=== PATIENT | female | born 1980 | race Caucasian/White ===

== ENCOUNTER 2019-10-31 11:06 | Emergency (ER) | payer OTHER, SELFPAY ==
[2019-10-31 12:47] LABS: Absolute Lymphocytes (CBC) 2.4 K/uL (0.7-4.9); Basophils % 0.4 % (0-1.3); Hematocrit 42.4 % (36.0-45.0); Lymphocytes % 27.5 % (15.3-44.8); MPV 8.4 fL (7.6-11.3); RBC Red Blood Cell Count 4.58 M/uL (3.86-4.86)
[2019-10-31 12:51] LABS: Protime INR 1.04
[2019-10-31 13:09] LABS: ALT/SGPT 63 U/L (12-78); AST/SGOT 27 U/L (15-37); Albumin 3.9 g/dL (3.4-5.0); Alkaline Phosphatase 80 U/L (45-117); BUN Blood Urea Nitrogen 13 mg/dL (7-18); Bicarbonate 26 mmol/L (21-32); Bilirubin Direct 0.1 mg/dL (0-0.2); Bilirubin Total 0.5 mg/dL (0.2-1.0); Glucose Level 91 mg/dL (74-106); Magnesium 2.1 mg/dL (1.8-2.4); NT PRO-BNP 8 pg/mL (<125); Potassium 3.9 mmol/L (3.5-5.1); Protein, Total 7.9 g/dL (6.4-8.2); Sodium Level 139 mmol/L (136-145); Troponin (Emerg Dept Use Only) < 0.02 ng/mL (0.0-0.045)
--- NOTE | 2019-10-31 13:36 | RAD REPORT ---
EXAM DESCRIPTION: RAD - Chest Single View - 10/31/2019 1:26 pm CLINICAL HISTORY: CHEST PAIN Chest pain. COMPARISON: No comparisons FINDINGS: Portable technique limits examination quality. The lungs are grossly clear. The heart is normal in size. No displaced fractures. IMPRESSION: No acute intrathoracic process suspected.
[2019-10-31] MEDS ORDERED: cloNIDine HCL 0.1 MG TAB ONE (14:50)
--- NOTE | 2019-10-31 14:52 | EKG ---
Test Date: 2019-10-31 Test Time: 12:45:50 Senior Php Developer: GLADIS MEASUREMENT RESULTS: Intervals: Rate: 96 [place]: 152 QRSD: 84 QT: 380 QTc: 480 [place]: P: 28 [place]: 152 QRS: -24 T: 14 INTERPRETIVE STATEMENTS: Normal sinus rhythm Cannot rule out Anterior infarct, age undetermined Abnormal ECG No previous ECG available for comparison Electronically Signed On 10-31-19 14:51:17 ASSEMBLY LEADER by Esdras Dang
--- NOTE | 2019-10-31 15:17 | ER ---
Nurse's Notes [facility] Name: Tiarra Robert Age: 38 yrs Sex: Female : 1980 Arrival Date: 10/31/2019 Time: 11:11 Bed 7 Private MD: Diagnosis: Hypertension secondary to other renal disorders Presentation: 10/31 11:29 Presenting complaint: Patient states: High blood pressure x years. Pt reports she has ss been feeling worse and has not been able to find a doctor that is covered by her insurance. Transition of care: patient was not received from another setting of care. Onset of symptoms is unknown. Risk Assessment: Do you want to hurt yourself or someone else? Patient reports no desire to harm self or others. Initial Sepsis Screen: Does the patient meet any 2 criteria? No. Patient's initial sepsis screen is negative. Does the patient have a suspected source of infection? No. Patient's initial sepsis screen is negative. Care prior to arrival: None. 11:29 Method Of Arrival: Ambulatory ss 11:29 Acuity: SEJAL 2 ss Historical: - Allergies: 11:31 No Known Allergies; ss - Home Meds: 11:31 None [Active]; ss - PMHx: 11:31 Hypertension; ss - PSHx: 11:31 None; ss - Immunization history:: Adult Immunizations unknown. - Social history:: Smoking status: Patient/guardian denies using tobacco, the patient reports quitting approximately .5 years ago. - Ebola Screening: : Patient denies exposure to infectious person Patient denies travel to an Ebola-affected area in the 21 days before illness onset. Screenin:15 Abuse screen: Denies threats or abuse. Denies injuries from another. Nutritional sg screening: No deficits noted. Tuberculosis screening: No symptoms or risk factors identified. Never had TB. Fall Risk None identified. Assessment: 12:15 General: Appears in no apparent distress. well groomed, well developed, well nourished, sg Behavior is calm, cooperative, appropriate for age. Pain: Complains of pain in headache Quality of pain is described as aching. Neuro: Level of Consciousness is awake, alert, obeys commands, Oriented to person, place, time, Speech is normal, Facial symmetry appears normal. Cardiovascular: Capillary refill is brisk in bilateral fingers Patient's skin is warm and dry. Chest pain is denied. Respiratory: Airway is patent Respiratory effort is even, unlabored, Respiratory pattern is regular, symmetrical. GI: No signs and/or symptoms were reported involving the gastrointestinal system. : No signs and/or symptoms were reported regarding the genitourinary system. EENT: No signs and/or symptoms were reported regarding the EENT system. Derm: Skin is pink, warm \T\ dry. Musculoskeletal: Circulation, motion, and sensation intact. Range of motion: intact in all extremities. Vital Signs: 11:31 BP 183 / 123; Pulse 120; Resp 15; Temp 97.6(TE); Pulse Ox 97% on R/A; Weight 79.83 kg; ss Height 5 ft. 2 in. (157.48 cm); Pain 0/10; 12:30 BP 177 / 113; Pulse 90; Resp 17; Pulse Ox 98% on R/A; sg 13:05 BP 136 / 94; Pulse 94; Resp 16; Temp 97.6; Pulse Ox 97% on R/A; sg 13:33 BP 135 / 107 LA (auto/reg); jp3 14:12 BP 162 / 88 LA Sitting (man/reg); Pulse 87; Pulse Ox 100% on R/A; sg 15:11 BP 147 / 99; Pulse 89; Resp 16; Pulse Ox 99% ; sv 11:31 Body Mass Index 32.19 (79.83 kg, 157.48 cm) ED Course: 11:11 Patient arrived in ED. ds1 11:31 Triage completed. ss 11:31 Arm band placed on left wrist. ss 11:50 Ronaldo Lara MD is Attending Physician. tw4 12:39 Patient maintains SpO2 saturation greater than 95% on room air. jp3 12:39 Initial lab(s) drawn, by me, sent to lab. EKG done, by plant technician. reviewed by Ronaldo Lara MD. Inserted saline lock: 20 gauge in right antecubital area, using aseptic technique. Blood collected. 12:45 Safety checks: Family/friend present: yes. Placed in gown. Bed in low position. Call jp3 light in reach. Side rails up X 1. Warm blanket given. Pillow given. Verbal reassurance given. front desk monitor on. Pulse ox on. NIBP on. 13:04 Fab Gómez, RN is Primary Nurse. sg 13:27 XRAY Chest (1 view) In Process Unspecified. EDMS 15:17 Sheldon Frost MD is Referral Physician. tw4 15:18 Pascual Hill MD is Referral Physician. tw4 15:18 Joel May MD is Referral Physician. tw4 15:18 Paulie Piña MD is Referral Physician. tw4 15:26 No provider procedures requiring assistance completed. IV discontinued, intact, sv bleeding controlled, No redness/swelling at site. Pressure dressing applied. Administered Medications: 14:50 Drug: cloNIDine 0.1 mg Route: PO; sg 15:20 Follow up: Response: No adverse reaction; Blood pressure is lowered sg Outcome: 15:17 Discharge ordered by . tw4 15:26 Discharged to home ambulatory. sv 15:26 Condition: stable 15:26 Discharge instructions given to patient, Instructed on discharge instructions, follow up and referral plans. medication usage, Demonstrated understanding of instructions, follow-up care, medications, Prescriptions given X 1. 15:26 Patient left the ED. sv Signatures: Dispatcher [employer] EDGunjan Peralta, RN RN Fab Gómez, RN RN Marnie Serrato ds1 Hien Arriaga RN RN Ronaldo Lara MD MD tw4 Andrea Walton jp3
--- NOTE | 2019-10-31 15:17 | EDPHYS ---
Physician Documentation [facility] Name: Tiarra Robert Age: 38 yrs Sex: Female : 1980 Arrival Date: 10/31/2019 Time: 11:11 Bed 7 Private MD: ED Physician Ronaldo Lara HPI: 10/31 15:01 This 38 yrs old Female presents to ER via Ambulatory with complaints of High tw4 Blood Pressure. 15:01 The patient has elevated blood pressure and discovered this at home. Onset: The tw4 symptoms/episode began/occurred today. Modifying factors: The symptoms are aggravated by activity, The symptoms are alleviated by remaining still. Severity of symptoms: At its worst the blood pressure was moderate, in the emergency department the blood pressure is unchanged. The patient has not experienced similar symptoms in the past. Historical: - Allergies: 11: No Known Allergies; ss - Home Meds: : None [Active]; ss - PMHx: : Hypertension; ss - PSHx: 11:31 None; ss - Immunization history:: Adult Immunizations unknown. - Social history:: Smoking status: Patient/guardian denies using tobacco, the patient reports quitting approximately .5 years ago. - Ebola Screening: : Patient denies exposure to infectious person Patient denies travel to an Ebola-affected area in the 21 days before illness onset. ROS: 15:02 Constitutional: Negative for fever, chills, and weight loss, Eyes: Negative for injury, tw4 pain, redness, and discharge, Respiratory: Negative for shortness of breath, cough, wheezing, and pleuritic chest pain, Abdomen/GI: Negative for abdominal pain, nausea, vomiting, diarrhea, and constipation, Back: Negative for injury and pain, MS/Extremity: Negative for injury and deformity, Skin: Negative for injury, rash, and discoloration. 15:02 Neuro: Positive for headache, Negative for altered mental status, dizziness, gait disturbance, hearing loss, loss of consciousness, numbness, seizure activity, speech changes, syncope. Exam: 14:56 Constitutional: This is a well developed, well nourished patient who is awake, alert, tw4 and in no acute distress. Head/Face: Normocephalic, atraumatic. Eyes: Pupils equal round and reactive to light, extra-ocular motions intact. Lids and lashes normal. Conjunctiva and sclera are non-icteric and not injected. Cornea within normal limits. Periorbital areas with no swelling, redness, or edema. Chest/axilla: Normal chest wall appearance and motion. Nontender with no deformity. No lesions are appreciated. Cardiovascular: Regular rate and rhythm with a normal S1 and S2. No gallops, murmurs, or rubs. Normal PMI, no JVD. No pulse deficits. Abdomen/GI: Soft, non-tender, with normal bowel sounds. No distension or tympany. No guarding or rebound. No evidence of tenderness throughout. Back: No spinal tenderness. No costovertebral tenderness. Full range of motion. MS/ Extremity: Pulses equal, no cyanosis. Neurovascular intact. Full, normal range of motion. Neuro: Awake and alert, GCS 15, oriented to person, place, time, and situation. Cranial nerves II-XII grossly intact. Motor strength 5/5 in all extremities. Sensory grossly intact. Cerebellar exam normal. Normal gait. Vital Signs: 11:31 BP 183 / 123; Pulse 120; Resp 15; Temp 97.6(TE); Pulse Ox 97% on R/A; Weight 79.83 kg; ss Height 5 ft. 2 in. (157.48 cm); Pain 0/10; 12:30 BP 177 / 113; Pulse 90; Resp 17; Pulse Ox 98% on R/A; sg 13:05 BP 136 / 94; Pulse 94; Resp 16; Temp 97.6; Pulse Ox 97% on R/A; sg 13:33 BP 135 / 107 LA (auto/reg); jp3 14:12 BP 162 / 88 LA Sitting (man/reg); Pulse 87; Pulse Ox 100% on R/A; sg 15:11 BP 147 / 99; Pulse 89; Resp 16; Pulse Ox 99% ; sv 11:31 Body Mass Index 32.19 (79.83 kg, 157.48 cm) MDM: 11:54 Patient medically screened. tw4 14:56 Differential diagnosis: hypertensive crisis, Malignant HTN. Data reviewed: vital signs, tw4 nurses notes. Data interpreted: Pulse oximetry: Interpretation: normal. Medication response: clonidine partially reduced the patient's blood pressure. 15:25 Counseling: I had a detailed discussion with the patient and/or guardian regarding: the tw4 presence of at least one elevated blood pressure reading (>120/80) during this emergency department visit. Special discussion: I discussed with the patient/guardian in detail that at this point there is no indication for admission to the hospital. It is understood, however, that if the symptoms persist or worsen the patient needs to return immediately for re-evaluation. 10/31 12:28 Order name: Basic Metabolic Panel; Complete Time: 13:52 10/31 13:53 Interpretation: Within normal limits. 10/31 12:28 Order name: CBC with Diff; Complete Time: 13:52 10/31 13:52 Interpretation: MCV 92.5. 10/31 12:28 Order name: LFT's; Complete Time: 13:52 10/31 13:52 Interpretation: Normal except: GLOB 4.0; A/G 1.0. 10/31 12:28 Order name: Magnesium; Complete Time: 13:52 10/31 13:53 Interpretation: Within normal limits: MG 2.1. 10/31 12:28 Order name: NT PRO-BNP; Complete Time: 13:52 10/31 13:53 Interpretation: Within normal limits: NT PRO-BNP 8. 10/31 12:28 Order name: PT-INR; Complete Time: 13:52 10/31 13:53 Interpretation: Within normal limits: PT 12.3. 10/31 12:28 Order name: Troponin (emerg Dept Use Only); Complete Time: 13:52 10/31 13:53 Interpretation: Within normal limits: TROPED < 0.02. 10/31 12:28 Order name: XRAY Chest (1 view); Complete Time: 13:52 10/31 12:28 Order name: EKG; Complete Time: 12:30 10/31 12:28 Order name: Cardiac monitoring; Complete Time: 12:45 10/31 12:28 Order name: EKG - Nurse/Tech; Complete Time: 12:45 10/31 12:28 Order name: IV Saline Lock; Complete Time: 12:45 10/31 12:28 Order name: Labs collected and sent; Complete Time: 12:45 10/31 12:28 Order name: O2 Per Protocol; Complete Time: 12:45 tw4 10/31 12:28 Order name: O2 Sat Monitoring; Complete Time: 12:45 tw4 EC:56 Rate is 96 beats/min. Rhythm is regular. QRS [place] is Normal. MS interval is normal. QRS tw4 interval is normal. QT interval is normal. No Q waves. T waves are Inverted. T waves are Flattened in lead aVF. No ST changes noted. Clinical impression: NSR w/ Non-specific ST/T Changes. Interpreted by me. Reviewed by me. Administered Medications: 14:50 Drug: cloNIDine 0.1 mg Route: PO; sg 15:20 Follow up: Response: No adverse reaction; Blood pressure is lowered sg Disposition: 10/31/19 15:17 Discharged to Home. Impression: Hypertension secondary to other renal disorders. - Condition is Stable. - Discharge Instructions: Hypertension, Hypertension, [id number]. - Prescriptions for amlodipine 5 mg Oral tablet - take 1 tablet by ORAL route once daily; 30 tablet. - Medication Reconciliation Form, Thank You Letter, Antibiotic Education, Prescription Opioid Use form. - Follow up: Private Physician; When: Upon discharge from the Emergency Department; Reason: Recheck today's complaints, Continuance of care. Follow up: Sheldon Frost MD; When: Upon discharge from the Emergency Department; Reason: Recheck today's complaints, Continuance of care. Follow up: Pascual Hill MD; When: Upon discharge from the Emergency Department; Reason: Recheck today's complaints, Continuance of care. Follow up: Joel May MD; When: Upon discharge from the Emergency Department; Reason: Recheck today's complaints, Continuance of care. Follow up: Paulie Piña MD; When: Upon discharge from the Emergency Department; Reason: Recheck today's complaints, Continuance of care. - Problem is new. - Symptoms have improved. Signatures: Dispatcher [employer] Gunjan Mclaughlni, Fab Burton RN, RN RN sg Smirch, Shelby, RN RN ss Wadley, Terrence, MD MD tw4 Corrections: (The following items were deleted from the chart) 15:18 15:17 10/31/2019 15:17 Discharged to Home. Impression: Hypertension secondary to other tw4 renal disorders. Condition is Stable. Forms are Medication Reconciliation Form, Thank You Letter, Antibiotic Education, Prescription Opioid Use. Follow up: Private Physician; When: Upon discharge from the Emergency Department; Reason: Recheck today's complaints, Continuance of care. Problem is new. Symptoms have improved. tw4 15:26 15:18 10/31/2019 15:17 Discharged to Home. Impression: Hypertension secondary to other sv renal disorders. Condition is Stable. Discharge Instructions: Hypertension, Hypertension, [id number]. Forms are Medication Reconciliation Form, Thank You Letter, Antibiotic Education, Prescription Opioid Use. Follow up: Private Physician; When: Upon discharge from the Emergency Department; Reason: Recheck today's complaints, Continuance of care. Follow up: Sheldon Frost; When: Upon discharge from the Emergency Department; Reason: Recheck today's complaints, Continuance of care. Follow up: Pascual Hill; When: Upon discharge from the Emergency Department; Reason: Recheck today's complaints, Continuance of care. Follow up: Joel May; When: Upon discharge from the Emergency Department; Reason: Recheck today's complaints, Continuance of care. Follow up: Paulie Piña; When: Upon discharge from the Emergency Department; Reason: Recheck today's complaints, Continuance of care. Problem is new. Symptoms have improved. tw4
[2019-10-31 17:18] VITALS: BP 147/99
[2019-10-31 17:30] VITALS: TEMP 97.4; O2SAT 98
== END 2019-10-31 15:26 | disposition home or self-care (01) ==
LOC: ER 11:06
DX: I10 Essential (primary) hypertension (principal)
CPT/HCPCS: 36415; 71045; 80048; 80076; 83735; 83880; 84484; 85025; 85610; 93005; 99285